=== PATIENT | male | born 1975 | race Two or more races ===

== ENCOUNTER 2016-03-21 09:05 | Emergency (ER) | payer SELFPAY ==
[~2016-03-21] VITALS: Ht 172.7 cm; Wt 61.2 kg
[2016-03-21 09:10] VITALS: BP 139/81
[2016-03-21 09:42] LABS: LEUKOCYTE ESTERASE ,URINE Negative (NEGATIVE)
[2016-03-21 09:43] LABS: ANION GAP 10 (5-14); CALCIUM, SERUM 8.5 mg/dL (8.5-10.1); CARBON DIOXIDE 30 mmol/L (21-32); CHLORIDE 106 mmol/L (98-107); CREATININE 0.9 mg/dL (0.6-1.3); GFR 94 mL/min (>60); GLUCOSE 162 mg/dL (74-106); POTASSIUM 3.5 mmol/L (3.5-5.1); SODIUM SERUM 142 mmol/L (136-145); UREA NITROGEN, BLOOD 10 mg/dL (7-18)
[2016-03-21 09:56] LABS: BASOPHILS % (AUTO) 0.4 % (0.0-2.0); DIFF TOTAL % 100 %; EOSINOPHILS # (AUTO) 0.1 /CMM (0.0-0.7); EOSINOPHILS % (AUTO) 1.1 % (0.0-6.0); HEMATOCRIT 48 % (39-51); HEMOGLOBIN 16.4 g/dL (13.5-17.5); LYMPHOCYTES # (AUTO) 1.2 /CMM (0.8-4.8); LYMPHOCYTES % (AUTO) 22.5 % (20.0-44.0); MEAN CORPUSCULAR HEMOGLOBIN 29 PG (26.0-33.0); MEAN CORPUSCULAR HGB CONC 34 g/dl (31.0-36.0); MEAN CORPUSCULAR VOLUME 85 fL (80-96); MONOCYTES # (AUTO) 0.4 /CMM (0.1-1.30); MONOCYTES % (AUTO) 7.4 % (2.0-12.0); NEUTROPHILS # (AUTO) 3.7 /CMM (1.8-8.9); NEUTROPHILS % (AUTO) 68.6 % (43.0-81.0); PLATELET COUNT (AUTO) 297 /CMM (150-450); RED BLOOD CELL COUNT(AUTO) 5.69 MIL/uL (4.5-6.0); WHITE BLOOD COUNT (AUTO) 5.4 K/uL (4.3-11.0)
[2016-03-21 09:58] LABS: PHENCYCLIDINE SCREEN,URINE NEGATIVE (NEGATIVE)
[2016-03-21 09:59] LABS: ALANINE AMINOTRANSFERASE 88 U/L (12-78); ALBUMIN 3.3 g/dL (3.4-5.0); ASPARTATE AMINOTRANSFERASE 52 U/L (15-37); BILIRUBIN,DIRECT 0.2 mg/dL (0.0-0.2); BILIRUBIN,TOTAL 0.3 mg/dL (0.2-1.0); INDIRECT BILIRUBIN 0.1 mg/dL (0.0-1.1); TOTAL PROTEIN, SERUM 6.9 g/dL (6.4-8.2)
[2016-03-21 10:01] LABS: CANNABINOID, URINE POSITIVE (NEGATIVE)
[2016-03-21 10:02] LABS: ACETAMINOPHEN 0 ug/ml (10-30); SALICYLATE 0.6 mg/dL (2.8-20.0)
[2016-03-21 10:03] LABS: ADD UA MICROSCOPIC YES
[2016-03-21 10:21] LABS: ADD URINE CULTURE NO; WBC,URINE 0-2 /HPF (0-3)
[2016-03-21 10:24] LABS: KETONES,URINE Trace (NEGATIVE)
[2016-03-21] MEDS ORDERED: CEPHALEXIN MONOHYDRATE 500 MG CAPSULE PO ONE ×2 (11:00→11:10)
[2016-03-21] MEDS ORDERED: TDAP [DIPH/PERTUSSIS/TET] 0.5 ML VIAL IM ONE ×2 (11:53→12:00)
[2016-03-21] MEDS ORDERED: IBUPROFEN 400 MG TABLET ONE (11:53)
[2016-03-21] MEDS ORDERED: IBUPROFEN 400 MG TABLET PO ONE (12:00)
== END 2016-03-21 13:18 | disposition home or self-care (01) ==
LOC: ER 09:07
DX: G40.909 Epilepsy, unspecified, not intractable, without status epilepticus (principal); L03.011 Cellulitis of right finger; F20.9 Schizophrenia, unspecified
CPT/HCPCS: 36415; 80048-TC; 80076-TC; 80305; 81000-TC; 85025-TC; 90715; A4606; G0480; G6039-TC; Z7610